=== PATIENT | female | born 1975 | race Caucasian/White ===

== ENCOUNTER 2016-10-02 07:41 | Day surgery (SDC) | payer OTHER ==
[~2016-10-02] VITALS: Ht 175.3 cm; Wt 97.5 kg
[2016-10-02] MEDS: Lactated Ringer's 1,000 ML IV SCH ×2 (05:47→09:18)
--- NOTE | 2016-10-02 07:11 | PCM.HPANE ---
Patient Data Surgeon Admitting Provider: Attending Provider:Harvey Bowman DPM Primary Care Physician:Jenaro Lara MD Other Provider:[facility] Reason for Visit Painful Retained Hardware Ht/WT & BMI Height (Feet): 5 Height (Inches): 8 Weight (Kilograms): 97.25 Body Mass Index 32.00 Allergies Coded Allergies: latex (Verified Allergy, Severe, RASH, 10/15/15) naproxen (Unverified Adverse Reaction, Severe, GI UPSET, 10/15/15) Past Anesthesia History Anesthesia History: Denies:: Abnormal Airway, Anesthesia Reactions, Difficult Intubation, Fam Anesthesia Reaction, Fam Malignant Hypertherm, Malignant Hyperthermia Diabetes History Hx Diabetes?: No (on metformin currently- being monitored 137 last BG) MRSA MRSA: No Medications Home Meds Incl Beta [place]: Yes (for anxiety) Reported Medications Buspirone 15 Mg [id number] Mg PO BID Ref 0 09/30/16 Temazepam 30 Mg Cap30 Mg PO HS PRN For Insomnia 30 Days Ref 0 09/30/16 Oxazepam 30 Mg Cap30 Mg PO QID PRN For Anxiety or Agitation 09/30/16 Metformin 500 Mg [id number] Mg PO BID Ref 0 pt states she takes usually only in evenings 09/30/16 Ibuprofen 800 Mg [id number] Mg PO TID PRN For Pain Ref 0 09/30/16 Ferrous Sulfate, Dried (Iron)160 Mg Tablet.er160 Mg PO DAILY 09/30/16 Multivitamin (Multi Vitamin Daily)1 Each Tablet1 Each PO DAILY 30 Days Ref 0 09/30/16 Propranolol HCl 10 Mg Xmhulc01 Mg PO PRN For Anxiety or Agitation 90 Days Ref 0 09/30/16 Discontinued Reported Medications Buspirone 5 Mg Tablet5 Mg PO BID Ref 0 09/30/16 Norgestimate-Ethinyl Estradiol (Sprintec)1 Each Tablet1 Each PO DAILYWD 09/30/16 Amphet Asp/Amphet/D-Amphet (Adderall)20 Mg Gecfnd87 Mg PO BID #30 TABLET Ref 0 10/11/14 Norgestimate-Ethinyl Estradiol (Sprintec)1 Each Tablet1 Each PO DAILY 10/11/14 Propranolol HCl 10 Mg Xchvhs97 Mg PO DAILY PRN PRN 90 Days Ref 0 10/11/14 Hydrocodone-Acetaminophen 7.5-325 mg 1 Each Tablet1 Each PO Q4H PRN For Pain Ref 0 10/11/14 History History of ENT Problems?: No HEENT History: Denies:: Abnormal Airway Cataracts Difficult Intubation Dysphagia Glaucoma Hearing Problem Hx of Heart Problems?: No Cardiovascular History: Positive for:: Chest Pain Irregular Heartbeat (irregular heart beat from anxiety) Denies:: AICD Atrial Fibrillation Congestive Heart Failure Heart Murmur Hypertension Pacemaker Valvular Heart Disease Hx of Respiratory Problem?: No Respiratory History: Denies:: Asthma COPD Emphysema Oxygen Administration Pneumonia Tuberculosis Use of C-PAP Machine Use of Inhalers / NEBS Hx Neurologic Problems?: No Neurological History: Denies:: CVA Dementia Headaches Multiple Sclerosis Parkinson's Disease Seizures Hx of GI Problems?: Yes Gastrointestinal History: Positive for:: Gastrointestinal Bleeding (allergy to NSAIDs- naproxen created bleeding) Rectal Bleeding (rectal bleeding hx, hemorrhoid) Denies:: Cirrhosis Diverticulitis Gall Bladder Disease Gastroesphageal Reflux Heartburn Hepatitis Hiatal Hernia Liver Disease Hx of Problems?: No Genitourinary History: Denies:: Kidney Stones Urinary Tract Infection Female Hx: Positive for:: Problems with Breasts? (hx of nevus exc lft breast) Denies:: Currently Skin History: Denies:: History Skin Disorders? Pressure Ulcers Hx Musculoskeletal Problems?: Yes Musculoskeletal History: Positive for:: Musculoskeletal Trauma (hardware removal left foot current admission problem.) Denies:: Back Injury Degenerative Joint Fibromyalgia Joint Replacement Osteoarthritis Rheumatoid Arthritis Hx of Psycho/Social Problems?: Yes (recovered from PTSD disorder) Psycho Social History: Positive for:: Anxiety (generalized anxiety disorder- using rx) Hx Depression Denies:: Bipolar Disorder Suicide Attempt Hx Surgeries?: Yes (exc nevus breast, ORIF left foot) Hx Any Other Health Problems?: Yes Other History: Denies:: Cancer Endocrine Disease Hospitalization Thyroid Disease History Blood Transfusions: Positive for:: Accept Blood Products? Denies:: Blood Transfusions Hx Diabetes: No (on metformin currently- being monitored 137 last BG) Hx Alcohol Use: YesAlcoholic Drinks Per Day: rare- a glass or two every few monthsHx Substance Use: No Smoking Status: Former Smoker Have You Smoked inLast 12 mo: No Stop/Bang S-Snoring: Do You Snore Loudly: Yes T-Tired: feel tired, fatigued: No O-Obsered: Observed not breath: No P-Blood Pressure: treated: No B- Body Mass Index > 35 kg/m2: No A- Age over 50: No N- Neck Large Circumference: No G- Gender Male: No TORI Total Score: 1 Risk Assessment Category Category 1A: Patient has history of documented sleep apnea, and HAS NOT received any narcotic, sedative or anesthesia administration during this stay. Category 1B: Patient has history of documented sleep apnea, and HAS received any narcotic , sedative or anesthesia administration during this stay Category 2: Patient has SUSPECTED Obstructive Sleep Apnea, and HAS received any narcotic , sedative or anesthesia administration during this stay. Category 3: Patient has SUSPECTED Obstructive Sleep Apnea and HAS NOT received narcotic, sedative or anesthesia administration during this stay. Category 4: Outpatient in Procedural Areas with known sleep apnea or who screen positive for High Risk via the STOP/BANG questionnaire. Exam Exam General Appearance: Alert, Oriented X3, Cooperative HEENT/AIRWAY: MP 2, Neck Movement (from), Mouth Opening (wnl) Lungs: Clear to Auscultation Heart: Exam Unremarkable Meds/Labs/Diagnostics Admission Meds Current Medications Lactated Ringer's (Lr) 1,000 ml @ 120 mls/hr Q8H20M IV Last administered on t 05:47; Start 10/02/16 at 05:00; Stop 10/02/16 at 13:19 Plan Impression Patient chart reviewed, patient interviewed and anesthestic plan with risks, benefits, and alternatives discussed, and informed consent obtained. NPO Status: 10/11/142039, last sip of black coffee today at 0955 ASA Physical Status: ASA2 Mod Systemic Disease Anesthetic Plan: GA Bene/Risks/Altern/Consents: Yes HP Complete Prior to Induction: Yes Riley Funk MD Oct 02, 2016 07:11
[~2016-10-02 07:41] MED LIST: BUSP15TA3 PO; FERR160T7 PO; IBUP800T28 PO; METF500T4 PO; MULT-1018 PO; PROP10TA8 PO; RES30 PO; [UNRECOGNIZED DRUG - CODE] PO
[2016-10-02] MEDS ORDERED: fentaNYL-PF 50 mCg/mL 2 mL Inj ONE (07:42)
[2016-10-02] MEDS ORDERED: LORazepam 1 mg Tablet PO PRN (07:50)
[2016-10-02] MEDS ORDERED: CeFAZolin Inj 2 gm / 50mL D5W IV ONE (07:51)
[2016-10-02 08:01] VITALS: BP 108/74; PULSE 63; RESP 12; O2SAT 98
[2016-10-02] MEDS ORDERED: Lactated Ringer's 500 ML IV PRN (09:16)
[2016-10-02] MEDS ORDERED: Lactated Ringer's 1,000 ML IV SCH (09:16)
[2016-10-02] MEDS ORDERED: fentaNYL-PF 50 mCg/mL 2 mL Inj IVPUSH PRN (09:20)
[2016-10-02] MEDS ORDERED: EPHEDrine Sulfate 50 mg/mL Inj IVPUSH PRN (09:20)
[2016-10-02] MEDS ORDERED: Labetalol 5 mg/mL 4 mL Inj IV PRN (09:20)
[2016-10-02] MEDS ORDERED: Dexamethasone 4 mg/mL Inj IVPUSH PRN (09:20)
[2016-10-02] MEDS ORDERED: hydrALAZINE 20 mg/mL Inj IVPUSH PRN (09:20)
[2016-10-02] MEDS ORDERED: Ondansetron 2 mg/mL 2 mL Inj IVPUSH PRN (09:20)
[2016-10-02] MEDS ORDERED: HYDROmorphone 1 mg/mL Inj IVPUSH PRN (09:20)
[2016-10-02] MEDS ORDERED: EPHEDrine Sulfate 50 mg/mL Inj IM PRN (09:20)
[2016-10-02] MEDS ORDERED: hydrOXYzine Inj 25 MG/1 mL SDV IM PRN (09:20)
[2016-10-02] MEDS ORDERED: Phenylephrine 10,000 mCg/mL Inj IVPUSH PRN (09:20)
[2016-10-02] MEDS ORDERED: Atropine 0.4 mg/mL Inj IVPUSH PRN (09:20)
[2016-10-02] MEDS ORDERED: Lidocaine 1%-Epi 1:100,000 20 mL Inj NERVEBLOCK ONE (09:30)
[2016-10-02] MEDS ORDERED: Bupivacaine-MPF 0.5% 30 mL Inj INFILTRATE ONE (09:30)
[2016-10-02] MEDS ORDERED: oxyCODONE-Acetamin 5-325 mg Tablet PO PRN (10:00)
[2016-10-02 10:01] VITALS: BP 112/76; PULSE 66; RESP 14; O2SAT 100
--- NOTE | 2016-10-02 10:05 | PCM.PODPO ---
Podiatry Operative Report Date of Service: Oct 02, 2016 Date of Service Oct 02, 2016 Pre Operative Diagnosis Retained orthopedic hardware left foot Post Operative Diagnosis Same as preoperative diagnosis Procedure Removal of hardware left foot Surgeon Surgeon: Harvey Bowman DPM Assistants: None Indication for Procedure Painful retained hardware left foot with associated bursal tissue Findings Bursal sac associated with the loosening of the distal aspect of the fifth metatarsal plate Details of Procedure Patient was identified in the preoperative holding area proper operative comorbidities and allergies were identified and thoroughly discussed. The patient was transported into the operating room and placed on the operating room table in normal supine position. The patient was placed under Mac anesthesia by the anesthesia service. The patient was then prepped and draped in the normal aseptic technique. Attention was paid to the lateral aspect of the left foot. A linear incision was made directly overlying the patient's previous scar. Once that initially her skin or subcutaneous neurovascular structures were identified and retracted out of the surgical field. Sharp dissection was carried down through subcutaneous tissue directly overlying the palpable left fifth metatarsal plate. Deep tissue was reflected both superiorly and inferiorly to reveal the internal fixation. Internal fixation was removed in the normal fashion with the Synthes screwdriver. Inspection of the local tissue revealed a small bursal sac overlying the fifth metatarsal head at the distal aspect of the internal fixation. This bursal tissue was debrided sharply and removed from the surgical field. This wound was then covered because of large amounts of normal saline. Closure was performed utilizing 3. 0 Vicryl and skin closure was performed utilizing #3-0 Prolene. Postoperative block consisting of 10 mL percent Marcaine plain was given around the left fifth metatarsal base. The patient was then dressed utilizing Adaptic sterile 4 x 4 gauze Kerlix and an Dimas bandage. The patient was awoken by anesthesia and transported to the operating room. No complications occurred during this procedure. Grafts, Implants: Implants-See Implant Record Complications There were no periprocedural complications identified. Condition Stable Anesthetic Administered: GA Catheters: None Output, Estimated Blood Loss: 10 Blood Admin during surgery: No Surgical Cast or Splint: None Surgical Specimen Removed: No Specimen sent to Pathology: No Post Operative Plan Ice and elevate left lower extremity Partial weightbearing left heel Keep dressing clean dry and intact Discharged to home when stable Contact office with any questions or concerns regarding care Harvey Bowman DPM Oct 02, 2016 10:05
[2016-10-02] MEDS ORDERED: CeFAZolin Inj 2 GM in IV Premix 1 EACH IV ONE (10:10)
[2016-10-02 10:15] VITALS: BP 120/70; PULSE 65; RESP 16; O2SAT 100
--- NOTE | 2016-10-02 10:26 | PCM.ANEP1 ---
Post Anesthesia Phase 1 PACU Phase 1 Assessment Date of Service: Oct 02, 2016 Vital Signs Vital Signs Date Time Temp Pulse Resp B/P Pulse Ox O2 Delivery O2 Flow Rate FiO2 10/02/16 10:01 35.7 66 14 112/76 100 Room Air 10/02/16 08:01 36.3 63 12 108/74 98 Room Air Anesthetic Administered: GA Level of Alertness: Awake, talking MINER's with Equal Strength: Yes Pain: No Nausea or Vomiting: No Oxygen Delivery: Room Air Lungs: Normal Air Movement Riley Funk MD Oct 02, 2016 10:26
--- NOTE | 2016-10-02 14:44 | PCM.ANEP2 ---
Post Anesthesia Evaluation ASA/CMS Post Anesthesia VS in Patient's Normal Range?: Yes Resp Stable; Airway Patent?: Yes CV Function & Hydration Stable: Yes Mental Status Recovered?: Yes Pain control Satisfactory?: Yes N/V Control Satisfactory?: Yes Riley Funk MD Oct 02, 2016 14:44
== END 2016-10-02 23:59 | disposition home or self-care (01) ==
LOC: SAS 07:41
PROVIDERS: ATTEND Podiatrist Foot & Ankle Surgery
DX: T84.84XA Pain due to internal orthopedic prosthetic devices, implants and grafts, initial encounter (principal)
CPT/HCPCS: 20680; J0690; J2250; J3010; J7120